=== PATIENT | female | born 1960 ===

== ENCOUNTER 2017-07-16 01:59 | Emergency (ER) | payer SELFPAY ==
[2017-07-16 02:26] VITALS: BMI 28.3
[2017-07-16 02:35] VITALS: RESP 18; TEMP 98.3
[2017-07-16] MEDS ORDERED: Morphine 4 mg/ml ISec IVP STA (02:50)
[2017-07-16] MEDS ORDERED: Sodium Chloride 0.9% 1,000 ML IV STA (02:50)
--- NOTE | 2017-07-16 03:02 | ED PDOC ---
Arrival/HPI - General Chief Complaint: Abdominal Pain Time Seen by Provider: 07/16/17 02:24 Historian: Patient - History of Present Illness Narrative History of Present Illness (Text): 07/16/17 02:59 A 56 year old female, whose past medical history includes panic attacks, hypertension, presents to the emergency department complaining of right upper quadrant abdominal pain. The patient notes that whenever she eats greasy foods she experiences the pain and gas. She notes that she has experienced this discomfort in the past. The patient denies fevers, chills, headache, dizziness, chest pain, shortness of breath, dyspnea on exertion, cough, nausea, vomiting, diarrhea, back pain, neck pain, urinary/bowel changes, or any other complaint. Time/Duration: Other (Few Days) Symptom Onset: Sudden Symptom Course: Unchanged Activities at Onset: Rest, Light Context: Home Past Medical History - Provider Review Nursing Documentation Reviewed: Yes - Infectious Disease Hx of Infectious Diseases: None - Tetanus Immunization Tetanus Immunization: Unknown - Cardiac Hx Hypertension: Yes - Pulmonary Hx Respiratory Disorders: No Hx Tuberculosis: No - Neurological HX Cerebrovascular Accident: No Hx Seizures: No - HEENT Hx HEENT Disorder: No - Renal Hx Renal Disorder: No - Endocrine/Metabolic Hx Hypothyroidism: Yes - Hematological/Oncological Hx Cancer: No - Integumentary Hx Dermatological Disorder: No - Musculoskeletal/Rheumatological Hx Musculoskeletal Disorders: No - Gastrointestinal Hx Gastrointestinal Disorders: No - Genitourinary/Gynecological Hx Sexually Transmitted Diseases: No - Psychiatric Hx Anxiety: Yes Hx Depression: Yes Hx Substance Use: No - Surgical History Hx Hysterectomy: Yes - Anesthesia Hx Anesthesia: Yes Hx Anesthesia Reactions: Yes (nausea) - Suicidal Assessment Feels Threatened In Home Enviroment: No Family/Social History - Physician Review Nursing Documentation Reviewed: Yes Family/Social History: No Known Family HX Smoking Status: Unknown If Ever Smoked Hx Alcohol Use: No Hx Substance Use: No Hx Substance Use Treatment: No Allergies/Home Meds Allergies/Adverse Reactions: Allergies No Known Allergies Allergy (Verified 07/16/17 02:33) Home Medications: Home Meds Medication Instructions Recorded Confirmed clonazePAM [clonAZEPAM] 2 mg PO HS 07/16/17 07/16/17 Review of Systems - Physician Review All systems were reviewed & negative as marked: Yes - Review of Systems Constitutional: absent: Fevers Cardiovascular: absent: Chest Pain Physical Exam - Physical Exam Narrative Physical Exam (Text): 07/16/17 03:04 Constitutional: No acute distress. Head: Normocephalic. Atraumatic. Eyes: PERRL. No scleral icterus. ENT: Moist mucous membranes. Neck: Supple. Cardiovascular: Regular rate. Chest: No tenderness. Respiratory: Clear to auscultation bilaterally. GI: Soft. Nondistended. RUQ tenderness with guarding. Back: No CVA tenderness. Musculoskeletal: No tenderness or swelling of extremities. Skin: No rash. No jaundice. Neurologic: Alert, no focal deficit. Vital Signs Reviewed: Yes Vital Signs Temp Pulse Resp BP Pulse Ox 07/16/17 02:33 98.3 F 87 18 139/83 99 Temperature: Afebrile Blood Pressure: Normal Pulse: Regular Respiratory Rate: Normal Appearance: Positive for: Well-Appearing, Non-Toxic, Comfortable Pain Distress: None Mental Status: Positive for: Alert and Oriented X 3 Medical Decision Making ED Course and Treatment: 07/16/17 03:01 Impression: A 56 year old female presents to the emergency department complaining of right upper quadrant abdominal pain. Plan: -- Abdominal Ultrasound -- Urinalysis -- Labs -- Morphine, Zofran, and IV Fluids -- Reassess and disposition Progress Notes: US Abdomen Complete Dictated and Authenticated by: Fouzia Carvajal MD 07/16/2017 5:22 AM Eastern Time ([place] & [place]) IMPRESSION: 1. No acute findings. 2. Hepatic steatosis. Patient states she feels better without abdominal tenderness at this time. Advised f/u with GI, instructed to return to ED in interim for worsening pain, vomiting, or fever. - Lab Interpretations Lab Results: 07/16/17 02:53 07/16/17 02:53 Lab Results 07/16/17 02:53: Sodium 141, Potassium 4.2, Chloride 105, Carbon Dioxide 25, Anion Gap 15, BUN 13, Creatinine 0.9, Est GFR ( Amer) > 60, Est GFR (Non- Af Amer) > 60, Random Glucose 109, Calcium 9.4, Total Bilirubin 0.5, AST 37 H, ALT 56, Alkaline Phosphatase 80, Total Protein 7.8, Albumin 4.3, Globulin 3.5, Albumin/Globulin Ratio 1.2, Lipase 135 07/16/17 02:53: Urine Color Yellow, Urine Appearance Clear, Urine pH 6.5, Ur Specific [place] <= 1.005, Urine Protein Negative, Urine Glucose (UA) Negative, Urine Ketones Negative, Urine Blood Negative, Urine Nitrate Negative, Urine Bilirubin Negative, Urine Urobilinogen 0.2, Ur Leukocyte Esterase Trace H, Urine RBC 0 - 2, Urine WBC 0 - 2, Ur Epithelial Cells 0 - 2, Urine HCG, Qual Negative 07/16/17 02:53: WBC 6.6, RBC 3.81, Hgb 11.8 L, Hct 34.6 L, MCV 90.8, MCH 31.0, MCHC 34.1, RDW 13.3, Plt Count 230, MPV 9.6, Gran % 42.8 L, Lymph % (Auto) 45.4 H, [place] % (Auto) 10.1 H, Eos % (Auto) 1.4 L, Baso % (Auto) 0.3, Gran # 2.83, Lymph # (Auto) 3.0, [place] # (Auto) 0.7 H, Eos # (Auto) 0.1, Baso # (Auto) 0.02 I have reviewed the lab results: Yes - RAD Interpretation Radiology Orders: 07/16/17 02:50 ABDOMEN COMPLETE [US] Stat - Medication Orders Current Medication Orders: Discontinued Medications Sodium Chloride (Sodium Chloride 0.9%) 1,000 mls @ 999 mls/hr IV .Q1H1M STA Stop: 07/16/17 03:50 Last Admin: 07/16/17 03:05 Dose: 999 mls/hr eMAR Start Stop Document 07/16/17 03:05 NAT (Rec: 07/16/17 03:05 NAT [id number]) Intravenous Solution Start Date 07/16/17 Start Time 03:05 Morphine Sulfate (Morphine) 4 mg IVP STAT STA Stop: 07/16/17 02:51 Last Admin: 07/16/17 03:05 Dose: 4 mg MAR Pain Assessment Document 07/16/17 03:05 NAT (Rec: 07/16/17 03:05 NAT [id number]) Pain Reassessment Is this a pain reassessment? Yes Sleep Is patient sleeping during reassessment? No Presence of Pain Presence of Pain Yes Pain Scale Used Pain Scale Used Numeric IVP Administration Document 07/16/17 03:05 NAT (Rec: 07/16/17 03:05 NAT [id number]) Charges for Administration # of IVP Administrations 1 Ondansetron HCl (Zofran Inj) 8 mg IVP STAT STA Stop: 07/16/17 02:51 Last Admin: 07/16/17 03:01 Dose: 8 mg IVP Administration Document 07/16/17 03:01 NAT (Rec: 07/16/17 03:03 NAT [id number]) Charges for Administration # of IVP Administrations 1 - Scribe Statement The provider has reviewed the documentation as recorded by the Julienibe Elenita Medrano Provider Scribe Attestation: All medical record entries made by the Scribe were at my direction and personally dictated by me. I have reviewed the chart and agree that the record accurately reflects my personal performance of the history, physical exam, medical decision making, and the department course for this patient. I have also personally directed, reviewed, and agree with the discharge instructions and disposition. Disposition/Present on Arrival - Present on Arrival Any Indicators Present on Arrival: No History of DVT/PE: No History of Uncontrolled Diabetes: No Urinary Catheter: No History of Decub. Ulcer: No History Surgical Site Infection Following: None - Disposition Have Diagnosis and Disposition been Completed?: Yes Diagnosis: Abdominal pain Disposition: HOME/ ROUTINE Disposition Time: 05:33 Patient Plan: Discharge Condition: STABLE Discharge Instructions (ExitCare): Acute Abdomen (Belly Pain) Prescriptions: Famotidine/Ca Carb/Mag Hydrox [Pepcid Complete Tablet Chew] 1 each PO BID #28 tab.chew Forms: [employer] (Stateless)
[2017-07-16 03:08] LABS: BASO # 0.02 K/mm3 (0.0-2.0); BASO % 0.3 % (0.0-3.0); EOS # 0.1 (0.0-0.7); EOS % 1.4 % (1.5-5.0); GRAN # 2.83 (1.4-6.5); GRAN % 42.8 % (50.0-68.0); HEMOGLOBIN 11.8 g/dL (12.0-16.0); LYMPH % 45.4 % (22.0-35.0); MEAN CELL VOLUME 90.8 fl (80.0-105.0); MEAN CORPUSCULAR HGB CONC 34.1 g/dl (31.0-37.0); MEAN PLATELET VOLUME 9.6 fl (7.0-11.0); MONO # 0.7 (0.1-0.6); MONO % 10.1 % (1.0-6.0); RBC 3.81 10^6/uL (3.5-6.1); RED CELL DISTRIBUTION WIDTH 13.3 % (11.5-14.5); WHITE BLOOD COUNT 6.6 10^3/ul (4.5-11.0)
[2017-07-16 03:09] LABS: PH,URINE 6.5 (4.7-8.0); URINE BILIRUBIN NEGATIVE (NEGATIVE); URINE BLOOD NEGATIVE (NEGATIVE); URINE GLUCOSE (UA) NEGATIVE (NEGATIVE); URINE LEUKOCYTE ESTERASE TRACE Leu/uL (NEGATIVE); URINE PROTEIN NEGATIVE mg/dL (<30 mg/dL); URINE UROBILINOGEN 0.2 E.U./dL (<1 E.U./dL)
[2017-07-16 03:14] LABS: HCG,QUALITATIVE URINE NEGATIVE (NEGATIVE); URINE APPEARANCE CLEAR (CLEAR); URINE COLOR YELLOW (YELLOW)
[2017-07-16 03:17] LABS: ALB/GLOB RATIO 1.2 (1.1-1.8); ALBUMIN 4.3 g/dL (3.0-4.8); ALT/SGPT 56 U/L (7-56); AST/SGOT 37 U/L (14-36); BLOOD UREA NITROGEN 13 mg/dL (7-21); CALCIUM 9.4 mg/dL (8.4-10.5); GFR AFRICAN-AMERICAN > 60; GFR NON-AFRICAN AMERICAN > 60; LIPASE 135 U/L (23-300)
[2017-07-16 03:19] LABS: URINE EPITHELIAL CELLS 0 - 2 /hpf (0-5); URINE RBC 0 - 2 /hpf (0-2); URINE WBC 0 - 2 /hpf (0-6)
[2017-07-16 05:59] VITALS: BP 111/67; PULSE 76; O2SAT 96
--- NOTE | 2017-07-16 06:54 | US ---
HISTORY: RUQ pain COMPARISON: 12/08/2012 TECHNIQUE: Sonographic evaluation of the abdomen. FINDINGS: LIVER: Measures 18.6 cm. Hepatopedal blood flow. Fatty infiltration manifest ultrasonographically as increased echogenicity of the liver parenchyma. No mass. No intrahepatic bile duct dilatation. GALLBLADDER: Unremarkable. No gallstones. COMMON BILE DUCT: Measures 5.6 mm. No stones. No dilatation. PANCREAS: Unremarkable as visualized. No mass. No ductal dilatation. RIGHT KIDNEY: Measures 4.2 x 10.5cm. Normal echogenicity. No calculus, mass, or hydronephrosis. LEFT KIDNEY: Measures 4.8 x 10 pointcm. Normal echogenicity. No calculus, mass, or hydronephrosis. SPLEEN: Normal in size and contour. No mass. AORTA: No aneurysmal dilatation. IVC: Unremarkable. OTHER FINDINGS: None. IMPRESSION: Hepatomegaly, hepatic steatosis. Otherwise unremarkable study. No significant interval change compared to the prior examination(s).
== END 2017-07-16 05:50 | disposition home or self-care (01) ==
LOC: ED 01:59
DX: R10.9 Unspecified abdominal pain (principal); I10 Essential (primary) hypertension
CPT/HCPCS: 76700; 80053; 81001; 83690; 84703; 85025; 87086; 96374; 96375; 99284; J2270; J2405; J7040

== ENCOUNTER 2018-01-09 23:01 | Emergency (ER) | payer MEDICAID ==
[2018-01-09 23:01] VITALS: BMI 28.3
[2018-01-10 00:33] VITALS: RESP 17
--- NOTE | 2018-01-10 00:51 | ED PDOC ---
Arrival/HPI - General Chief Complaint: Back Pain Time Seen by Provider: 01/10/18 00:47 Historian: Patient - History of Present Illness Narrative History of Present Illness (Text): 01/10/18 02:23 57 y/o female with PMH of gastritis, sciatica, herniated discs, and chronic back pain (s/p accidents in 2012 and 2015) presents to the ED c/o worsening right- sided lower back pain x 8 days. Pt describes pain as 10/10, sharp, worse with movement. She has had pain like this before, but never this severe. Pain occasionally radiates down her right leg with associated paresthesias. Took 1 Alieve yesterday for pain without relief. Pt has established orthopedic followup and has had two MRI's of her spine in the past. No recent imaging. Also c/o mild epigastric abdominal pain and constipation that is chronic, which she attributes to her gastritis. No recent trauma, heavy lifting, or IVDA. Denies fevers, chills, bowel/bladder incontinence, saddle anesthesia, urinary symptoms, weakness, N/V, neck pain. Past Medical History - Provider Review Nursing Documentation Reviewed: Yes - Infectious Disease Hx of Infectious Diseases: None - Tetanus Immunization Tetanus Immunization: Unknown - Cardiac Hx Hypertension: Yes - Pulmonary Hx Respiratory Disorders: No Hx Tuberculosis: No - Neurological HX Cerebrovascular Accident: No Hx Seizures: No - HEENT Hx HEENT Disorder: No - Renal Hx Renal Disorder: No - Endocrine/Metabolic Hx Hypothyroidism: Yes - Hematological/Oncological Hx Cancer: No - Integumentary Hx Dermatological Disorder: No - Musculoskeletal/Rheumatological Hx Musculoskeletal Disorders: No - Gastrointestinal Hx Gastrointestinal Disorders: No - Genitourinary/Gynecological Hx Sexually Transmitted Diseases: No - Psychiatric Hx Anxiety: Yes Hx Depression: Yes Hx Substance Use: No - Surgical History Hx Hysterectomy: Yes - Anesthesia Hx Anesthesia: Yes Hx Anesthesia Reactions: Yes (nausea) Hx Malignant Hyperthermia: No - Suicidal Assessment Feels Threatened In Home Enviroment: No Family/Social History - Physician Review Nursing Documentation Reviewed: Yes Family/Social History: No Known Family HX Smoking Status: Never Smoked Hx Alcohol Use: No Hx Substance Use: No Hx Substance Use Treatment: No Allergies/Home Meds Allergies/Adverse Reactions: Allergies No Known Allergies Allergy (Verified 01/10/18 00:08) Review of Systems - Physician Review All systems were reviewed & negative as marked: Yes - Review of Systems Constitutional: Normal. absent: Fatigue, Fevers Eyes: Normal. absent: Vision Changes, Photophobia, Eye Pain ENT: Normal Respiratory: Normal. absent: SOB, Cough Cardiovascular: Normal. absent: Chest Pain, Palpitations Gastrointestinal: Normal, Abdominal Pain (mild, epigastric). absent: Stool Changes, Constipation, Diarrhea, Nausea, Vomiting, Appetite Changes Genitourinary Female: Normal. absent: Dysuria, Frequency, Hematuria, Urine Output Changes, Vaginal Bleeding, Vaginal Discharge Musculoskeletal: Normal, Back Pain (right side). absent: Neck Pain, Joint Swelling, Myalgias Skin: Normal. absent: Rash, Skin Lesions, Abscess Neurological: Normal, Gait Changes (limping secondary to pain). absent: Headache, Dizziness, Focal Weakness, Speech Changes, Facial Droop, Disequilibrium, Seizure Endocrine: Normal Hemo/Lymphatic: Normal Psychiatric: Normal Physical Exam Vital Signs Reviewed: Yes Vital Signs Temp Pulse Resp BP Pulse Ox 01/10/18 00:32 98.0 F 81 17 168/93 H 96 Temperature: Afebrile Blood Pressure: Hypertensive Pulse: Regular Respiratory Rate: Normal Appearance: Positive for: Well-Appearing, Non-Toxic, Comfortable Pain Distress: None Mental Status: Positive for: Alert and Oriented X 3 - Systems Exam Head: Present: Atraumatic, Normocephalic Pupils: Present: PERRL Extroacular Muscles: Present: EOMI Conjunctiva: Present: Normal Mouth: Present: Moist Mucous Membranes Neck: Present: Normal Range of Motion Respiratory/Chest: Present: Clear to Auscultation, Good Air Exchange. No: Respiratory Distress, Accessory Muscle Use Cardiovascular: Present: Regular Rate and Rhythm, Normal S1, S2. No: Murmurs Abdomen: Present: Tenderness (mild epigastric tenderness), Normal Bowel Sounds. No: Distention, Peritoneal Signs, Rebound, Guarding Back: Present: Normal Inspection, Midline Tenderness (lumbar spine), Paraspinal Tenderness (right and left lumbar paraspinal), Pain with Leg Raise (right side ). No: CVA Tenderness, Decubitus Ulcer Upper Extremity: Present: Normal Inspection, Normal ROM, NORMAL PULSES. No: Cyanosis, Edema, Tenderness, Swelling Lower Extremity: Present: Normal Inspection, NORMAL PULSES, Normal ROM. No: Edema, Tenderness, Swelling Neurological: Present: GCS=15, CN II-XII Intact, Speech Normal, Motor Func Grossly Intact, Normal Sensory Function, Normal Cerebellar Funct. No: Gait Normal (limping secondary to pain) Skin: Present: Warm, Dry, Normal Color. No: Rashes Psychiatric: Present: Alert, Oriented x 3, Normal Insight, Normal Concentration Medical Decision Making ED Course and Treatment: 01/10/18 00:57 Initial Plan: * valium * toradol * ua, culture * CBC, CMP, ESR * AXR * CT Lumbar spine 01/10/18 01:30 Pt reports decreased pain after medication. 01/10/18 02:00 Will endorse pt to Dr. Balderas pending results of diagnostic testing. Pt aware of change of care. Disposition/Present on Arrival - Present on Arrival Any Indicators Present on Arrival: No History of DVT/PE: No History of Uncontrolled Diabetes: No Urinary Catheter: No History of Decub. Ulcer: No History Surgical Site Infection Following: None - Disposition Have Diagnosis and Disposition been Completed?: No Diagnosis: Back pain Disposition Time: 02:00 Patient Problems: Current Active Problems Problem Status Onset Back pain Acute Condition: STABLE Forms: [employer] (Greek)
[2018-01-10] MEDS ORDERED: Lidocaine 5% Patch TD ONE (02:03)
[2018-01-10 02:49] LABS: ALB/GLOB RATIO 1.1 (1.1-1.8); ALBUMIN 4.5 g/dL (3.0-4.8); ALT/SGPT 36 U/L (7-56); AST/SGOT 27 U/L (14-36); BASO # 0.01 K/mm3 (0.0-2.0); BASO % 0.1 % (0.0-3.0); BLOOD UREA NITROGEN 12 mg/dL (7-21); CALCIUM 9.2 mg/dL (8.4-10.5); EOS # 0.1 (0.0-0.7); EOS % 1.6 % (1.5-5.0); GFR NON-AFRICAN AMERICAN > 60; GRAN # 4.31 (1.4-6.5); GRAN % 50.1 % (50.0-68.0); LYMPH # 3.6 (1.2-3.4); LYMPH % 41.7 % (22.0-35.0); MEAN CORPUSCULAR HEMOGLOBIN 30.9 pg (25.0-35.0); MEAN CORPUSCULAR HGB CONC 33.8 g/dl (31.0-37.0); MEAN PLATELET VOLUME 9.6 fl (7.0-11.0); MONO # 0.6 (0.1-0.6); MONO % 6.5 % (1.0-6.0); RBC 3.88 10^6/uL (3.5-6.1); RED CELL DISTRIBUTION WIDTH 13.4 % (11.5-14.5); URINE BILIRUBIN NEGATIVE (NEGATIVE); URINE BLOOD TRACE-INTACT (NEGATIVE); URINE GLUCOSE (UA) NEGATIVE (NEGATIVE); URINE LEUKOCYTE ESTERASE SMALL Leu/uL (NEGATIVE); URINE PROTEIN NEGATIVE mg/dL (<30 mg/dL); URINE UROBILINOGEN 0.2 E.U./dL (<1 E.U./dL); WHITE BLOOD COUNT 8.6 10^3/uL (4.5-11.0)
[2018-01-10 02:53] LABS: URINE APPEARANCE SL CLOUDY (CLEAR); URINE COLOR YELLOW (YELLOW)
[2018-01-10 02:54] LABS: MEAN CELL VOLUME 91.5 fl (80.0-105.0)
[2018-01-10 03:08] LABS: URINE BACTERIA FEW (NEG); URINE RBC 0 - 2 /hpf (0-2)
--- NOTE | 2018-01-10 03:26 | ED PDOC ---
Physical Exam Vital Signs Reviewed: Yes Vital Signs Temp Pulse Resp BP Pulse Ox 01/10/18 03:04 86 17 143/88 97 01/10/18 00:32 98.0 F 81 17 168/93 H 96 Temperature: Afebrile Blood Pressure: Hypertensive Pulse: Regular Respiratory Rate: Normal Appearance: Positive for: Well-Appearing, Non-Toxic, Comfortable Pain Distress: None Mental Status: Positive for: Alert and Oriented X 3 Medical Decision Making ED Course and Treatment: 01/10/18 02:25 57 y/o F presenting to the emergency department with back pain. Pending CT results. 01/10/18 04:55 CT results show multi-level disk disease. Labs reviewed and unremarkable. Patient updated on findings and states she has been aware. She will follow up. Scripts provided. She - Lab Interpretations Lab Results: 01/10/18 02:16 01/10/18 02:16 Lab Results 01/10/18 02:16: Sodium 140, Potassium 4.0, Chloride 105, Carbon Dioxide 24, Anion Gap 15, BUN 12, Creatinine 0.8, Est GFR ( Amer) > 60, Est GFR (Non- Af Amer) > 60, Random Glucose 99, Calcium 9.2, Total Bilirubin 0.4, AST 27, ALT 36, Alkaline Phosphatase 110, Total Protein 8.4 H, Albumin 4.5, Globulin 4.0, Albumin/Globulin Ratio 1.1 01/10/18 02:16: WBC 8.6 D, RBC 3.88, Hgb 12.0, Hct 35.5 L, MCV 91.5 D, MCH 30.9, MCHC 33.8, RDW 13.4, Plt Count 234, MPV 9.6, Gran % 50.1, Lymph % (Auto) 41.7 H, Bent % (Auto) 6.5 H, Eos % (Auto) 1.6, Baso % (Auto) 0.1, Gran # 4.31, Lymph # (Auto) 3.6 H, Bent # (Auto) 0.6, Eos # (Auto) 0.1, Baso # (Auto) 0.01, ESR Pending 01/10/18 02:16: Urine Color Yellow, Urine Appearance Sl cloudy, Urine pH 6.0, Ur Specific [place] 1.025, Urine Protein Negative, Urine Glucose (UA) Negative, Urine Ketones Negative, Urine Blood Trace-intact H, Urine Nitrate Negative, Urine Bilirubin Negative, Urine Urobilinogen 0.2, Ur Leukocyte Esterase Small H, Urine RBC 0 - 2, Urine WBC 2 - 5, Ur Epithelial Cells 1 - 3, Urine Bacteria Few - RAD Interpretation Narrative RAD Interpretations (Text): 01/10/18 03:43 CT scan of the lumbar spine without contrast. Indication: Trauma. Pain. Technique: Axial CT scan images without contrast. Reformatted coronal and sagittal images. Findings: There are diffuse spondylotic changes. Findings are demonstrated by disc space narrowing, osteophyte formation and degenerative endplate changes. Facet joint arthropathy is noted. No fracture or dislocation is seen. No aggressive bone lesion is noted. Mild multilevel degenerative disc disease more prominent from L2-S1 levels. Impression: Spondylosis. Multilevel facet joint arthropathy. No acute bone pathology. 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 No Sleep Is patient sleeping during reassessment? No Presence of Pain Presence of Pain No IM Administration Charges Document 01/10/18 01:21 IT (Rec: 01/10/18 01:22 IT [id number]) Injection Site MAR Injection Site Right Deltoid Charges for Administration # of IM Administrations 1 Lidocaine (Lidoderm) 1 ea TD ONCE ONE Stop: 01/10/18 02:04 Last Admin: 01/10/18 03:03 Dose: 1 ea MAR Transdermal Patch Site Document 01/10/18 03:03 IT (Rec: 01/10/18 03:04 IT [id number]) Transdermal Patch Site Transdermal Patch Site Left Lower Back Disposition/Present on Arrival - Present on Arrival Any Indicators Present on Arrival: No History of DVT/PE: No History of Uncontrolled Diabetes: No Urinary Catheter: No History of Decub. Ulcer: No History Surgical Site Infection Following: None - Disposition Have Diagnosis and Disposition been Completed?: Yes Diagnosis: Back pain Disposition: HOME/ ROUTINE Disposition Time: 04:58 Patient Plan: Discharge Patient Problems: Current Active Problems Problem Status Onset Back pain Acute Condition: STABLE Discharge Instructions (ExitCare): Low Back Pain (DC), Herniated Disc (DC), Upper Back Pain (DC), Radiculopathy (DC) Print Language: BHUTANESE Additional Instructions: All medical record entries made by the Scribe were at my direction and personally dictated by me. I have reviewed the chart and agree that the record accurately reflects my personal performance of the history, physical exam, medical decision making, and the department course for this patient. I have also personally directed, reviewed, and agree with the discharge instructions and disposition. Prescriptions: Cyclobenzaprine [Cyclobenzaprine HCl] 10 mg PO PRN PRN #6 tab PRN Reason: Muscle Spasm Ibuprofen [Motrin Tab] 600 mg PO Q6H PRN 6 Days #24 tab PRN Reason: Pain, Moderate (4-7) Lidocaine 5% [Lidoderm] 1 ea TD Q12H #5 patch Referrals: Evens Zavala MD [Staff Provider] - Follow up with primary Netta Amanda MD [Medical Doctor] - [place] up with primary [facility] [place] - Follow up with primary Forms: [employer] (Malaysian)
[2018-01-10 05:20] VITALS: BP 138/82; PULSE 82; TEMP 98.2; O2SAT 98
--- NOTE | 2018-01-10 10:14 | CT ---
Date of service: 01/10/2018 PROCEDURE: CT Lumbar Spine without contrast HISTORY: midline tender COMPARISON: None available. TECHNIQUE: Axial computed tomography images were obtained of the lumbar spine without the use of intravenous contrast. Coronal and sagittal reformatted images were created and reviewed. Radiation dose: Total exam DLP = 487.04 mGy-cm. This CT exam was performed using one or more of the following dose reduction techniques: Automated exposure control, adjustment of the mA and/or kV according to patient size, and/or use of iterative reconstruction technique. FINDINGS: VERTEBRAE: Unremarkable. No fracture. Normal alignment. DISCS/SPINAL CANAL/NEURAL FORAMINA: L1-2: Unremarkable. L2-3: Unremarkable. L3-4: Unremarkable. L4-5: Unremarkable. L5-S1: Disc ridge complex with foraminal stenosis on the left. PARASPINAL SOFT TISSUES: Unremarkable. OTHER FINDINGS: None. IMPRESSION: No fracture.
--- NOTE | 2018-01-10 11:28 | RAD ---
Date of service: 01/10/2018 HISTORY: distension COMPARISON: None available. FINDINGS: BOWEL: Normal. No obstruction. No free air. There is moderate constipation BONES: Normal. OTHER FINDINGS: None. IMPRESSION: Moderate constipation
== END 2018-01-10 05:20 | disposition home or self-care (01) ==
LOC: ED 23:01
DX: M54.5 Low back pain (principal); I10 Essential (primary) hypertension; E03.9 Hypothyroidism, unspecified
CPT/HCPCS: 72131; 74019; 80053; 81001; 85025; 85651; 87086; 96372; 99283; J1885

== ENCOUNTER 2018-05-12 13:18 | Inpatient (IN) | payer MEDICAID ==
[2018-05-12 13:42] VITALS: BMI 27.2
[2018-05-12 14:21] LABS: URINE BILIRUBIN NEGATIVE (NEGATIVE); URINE BLOOD NEGATIVE (NEGATIVE); URINE GLUCOSE (UA) NEGATIVE (NEGATIVE); URINE LEUKOCYTE ESTERASE NEGATIVE Leu/uL (NEGATIVE); URINE PROTEIN NEGATIVE mg/dL (<30 mg/dL); URINE UROBILINOGEN 0.2 E.U./dL (<1 E.U./dL)
[2018-05-12 14:22] LABS: URINE APPEARANCE CLEAR (CLEAR); URINE COLOR YELLOW (YELLOW)
[2018-05-12 14:29] LABS: BASO # 0.01 K/mm3 (0.0-2.0); BASO % 0.1 % (0.0-3.0); EOS # 0.1 (0.0-0.7); EOS % 1.5 % (1.5-5.0); HEMOGLOBIN 12.7 g/dL (12.0-16.0); LYMPH # 3.3 (1.2-3.4); LYMPH % 45.6 % (22.0-35.0); MEAN CELL VOLUME 91.1 fl (80.0-105.0); MEAN CORPUSCULAR HEMOGLOBIN 30.6 pg (25.0-35.0); MEAN CORPUSCULAR HGB CONC 33.6 g/dl (31.0-37.0); MEAN PLATELET VOLUME 9.7 fl (7.0-11.0); MONO # 0.5 (0.1-0.6); MONO % 7.5 % (1.0-6.0); RBC 4.15 10^6/uL (3.5-6.1); RED CELL DISTRIBUTION WIDTH 13.5 % (11.5-14.5); WHITE BLOOD COUNT 7.2 10^3/uL (4.5-11.0)
--- NOTE | 2018-05-12 14:32 | RAD ---
Date of service: 05/12/2018 HISTORY: pes eval COMPARISON: 11/28/2017 FINDINGS: LUNGS: No active pulmonary disease. PLEURA: No significant pleural effusion identified, no pneumothorax apparent. CARDIOVASCULAR: No aortic atherosclerotic calcification present. Normal cardiac size. No pulmonary vascular congestion. OSSEOUS STRUCTURES: No significant abnormalities. VISUALIZED UPPER ABDOMEN: Normal. OTHER FINDINGS: None. IMPRESSION: No active disease.
[2018-05-12 14:41] LABS: ACETAMINOPHEN < 10.0 ug/ml (10.0-20.0); SALICYLATE < 1 mg/dL (2.0-20.0)
[2018-05-12 14:41] LABS: BENZODIAZEPINES, UR NEGATIVE (NEGATIVE)
[2018-05-12 14:42] LABS: ALB/GLOB RATIO 1.2 (1.1-1.8); BLOOD UREA NITROGEN 12 mg/dL (7-21); CALCIUM 9.9 mg/dL (8.4-10.5); GFR NON-AFRICAN AMERICAN > 60
[2018-05-12 14:46] LABS: BARBITURATES, UR NEGATIVE (NEGATIVE); OPIATES, UR NEGATIVE (NEGATIVE); PHENCYCLIDINE, UR NEGATIVE (NEGATIVE)
[2018-05-12 14:46] LABS: ALT/SGPT 20 U/L (7-56); AST/SGOT 32 U/L (14-36)
--- NOTE | 2018-05-12 16:07 | CARD ---
APPROVED REPORT Date of service: 05/12/2018 EKG Measurement Heart [id number] <Conclusion> Normal sinus rhythm Normal ECG
--- NOTE | 2018-05-12 16:50 | ED PDOC ---
Arrival/HPI - General Chief Complaint: Psychiatric Evaluation Time Seen by Provider: 05/12/18 13:22 Historian: Patient - History of Present Illness Narrative History of Present Illness (Text): 05/12/18 16:54 57yr old female with a hx of anxiety and depression presents today sent in by her psychiatrist for psychiatric admission. Patient states while in the office she had a panic attack and she's been feeling very anxious and depressed lately. She denies suicidal or homicidal ideations. She denies chest pain or shortness of breath. Patient denies dizziness or weakness. No other complaints. Patient states she did not take her blood pressure medicine today. Past Medical History - Provider Review Nursing Documentation Reviewed: Yes - Travel History Have you recently traveled outside [place] w/in the past 3 mons?: No - Infectious Disease Hx of Infectious Diseases: None - Tetanus Immunization Tetanus Immunization: Unknown - Cardiac Hx Cardiac Disorders: No Hx Hypertension: Yes - Pulmonary Hx Tuberculosis: No - Neurological HX Cerebrovascular Accident: No Hx Seizures: No - HEENT Hx HEENT Disorder: Yes (SEASONAL ALLERGIES) - Renal Hx Renal Disorder: No - Endocrine/Metabolic Hx Endocrine Disorders: Yes Hx Hypothyroidism: Yes - Hematological/Oncological Hx Cancer: No - Integumentary Hx Dermatological Disorder: No - Musculoskeletal/Rheumatological Hx Musculoskeletal Disorders: Yes Hx Back Pain: Yes (PINCHED NERVE) Hx Herniated Disk: Yes (4) - Gastrointestinal Hx Gastrointestinal Disorders: Yes Hx Gastritis: Yes - Genitourinary/Gynecological Hx Sexually Transmitted Diseases: No - Psychiatric Hx Psychophysiologic Disorder: Yes Hx Anxiety: Yes Hx Depression: Yes Hx Emotional Abuse: No Hx Panic Disorder: Yes Hx Physical Abuse: No Hx Substance Use: No - Surgical History Hx Section: Yes (X1) Hx Hysterectomy: Yes - Anesthesia Hx Anesthesia: Yes Hx Anesthesia Reactions: Yes (nausea) Hx Malignant Hyperthermia: No - Suicidal Assessment Feels Threatened In Home Enviroment: No Family/Social History - Physician Review Nursing Documentation Reviewed: Yes Family/Social History: Unknown Family HX Smoking Status: Never Smoked Hx Alcohol Use: No Hx Substance Use: No Hx Substance Use Treatment: No Allergies/Home Meds Allergies/Adverse Reactions: Allergies No Known Allergies Allergy (Verified 05/12/18 13:47) Home Medications: Home Meds Medication Instructions Recorded Confirmed Atorvastatin [Lipitor] 20 mg PO DIN 04/20/18 04/20/18 Ergocalciferol (Vitamin D2) 1 tab PO QWK 04/20/18 04/20/18 [Vitamin D2] Fluticasone Propionate [Flovent 1 spray INH DAILY 04/20/18 04/20/18 Diskus] Levocetirizine Dihydrochloride 1 tab PO DAILY 04/20/18 04/20/18 Losartan [Cozaar] 100 mg PO DAILY 04/20/18 04/20/18 Mirtazapine 1 tab PO HS 04/20/18 04/20/18 Peppermint Oil [Ibgard] 1 tab PO DAILY 04/20/18 04/20/18 Promethazine DM [Phenergan DM 5 ml PO PRN PRN 04/20/18 04/20/18 Syrup] Venlafaxine [Effexor XR] 300 mg PO DAILY 04/20/18 04/20/18 Review of Systems - Review of Systems Constitutional: absent: Fatigue, Fevers Respiratory: absent: SOB, Cough Cardiovascular: absent: Chest Pain, Palpitations Gastrointestinal: absent: Abdominal Pain, Constipation, Diarrhea, Nausea, Vomiting Musculoskeletal: absent: Arthralgias, Back Pain, Neck Pain Skin: absent: Rash, Pruritis Neurological: absent: Headache, Dizziness Psychiatric: absent: Anxiety, Depression, Suicidal Ideation Physical Exam Vital Signs Reviewed: Yes Vital Signs Temp Pulse Resp BP Pulse Ox 05/12/18 14:16 80 18 154/72 H 99 05/12/18 13:41 97.9 F 95 H 19 189/105 H 100 Temperature: Afebrile Blood Pressure: Hypertensive Pulse: Regular Respiratory Rate: Normal Appearance: Positive for: Well-Appearing, Non-Toxic, Comfortable Pain Distress: None Mental Status: Positive for: Alert and Oriented X 3 - Systems Exam Head: Present: Atraumatic Mouth: Present: Moist Mucous Membranes Neck: Present: Normal Range of Motion Respiratory/Chest: Present: Clear to Auscultation, Good Air Exchange. No: Respiratory Distress, Accessory Muscle Use Cardiovascular: Present: Regular Rate and Rhythm, Normal S1, S2. No: Murmurs Abdomen: No: Tenderness, Distention, Rebound, Guarding Upper Extremity: Present: Normal ROM Lower Extremity: Present: Normal ROM Neurological: Present: GCS=15, Speech Normal Skin: Present: Warm, Dry, Normal Color. No: Rashes Psychiatric: Present: Alert, Oriented x 3 Medical Decision Making ED Course and Treatment: 05/12/18 16:59 Patient is nontoxic well-appearing in no distress vital signs are stable. CBC WNL CMP WNL Tylenol WNL Salicylate WNL Alcohol level WNL Urine drug screen wnl UA; wnl cxr: wnl ekg normal sinus rhythm at 90 bpm normal axis normal intervals no ST elevations pt is medically cleared for PES evaluation Patient was seen and evaluated by PES screener: Charlene Patient signed voluntarily for psychiatric admission. Impression; depression, panic disorder Admitted to behavioral health floor Reassessment Condition: Re-examined - Lab Interpretations Lab Results: Total Bilirubin 0.7 mg/dL (0.2-1.3) 05/12/18 14:20 AST 32 U/L (14-36) 05/12/18 14:20 ALT 20 U/L (7-56) 05/12/18 14:20 Alkaline Phosphatase 107 U/L (38-126) 05/12/18 14:20 Total Protein 9.3 g/dL (5.8-8.3) H 05/12/18 14:20 Albumin 5.0 g/dL (3.0-4.8) H 05/12/18 14:20 Globulin 4.3 gm/dL 05/12/18 14:20 Albumin/Globulin Ratio 1.2 (1.1-1.8) 05/12/18 14:20 Urine Color Yellow (YELLOW) 05/12/18 14:10 Urine Appearance Clear (CLEAR) 05/12/18 14:10 Urine pH 6.0 (4.7-8.0) 05/12/18 14:10 Ur Specific [place] 1.025 (1.005-1.035) 05/12/18 14:10 Urine Protein Negative mg/dL (<30 mg/dL) 05/12/18 14:10 Urine Glucose (UA) Negative mg/dL (NEGATIVE) 05/12/18 14:10 Urine Ketones Negative mg/dL (NEGATIVE) 05/12/18 14:10 Urine Blood Negative (NEGATIVE) 05/12/18 14:10 Urine Nitrate Negative (NEGATIVE) 05/12/18 14:10 Urine Bilirubin Negative (NEGATIVE) 05/12/18 14:10 Urine Urobilinogen 0.2 E.U./dL (<1 E.U./dL) 05/12/18 14:10 Ur Leukocyte Esterase Negative William/uL (NEGATIVE) 05/12/18 14:10 - RAD Interpretation Radiology Orders: 05/12/18 14:03 CHEST PORTABLE [RAD] Stat Disposition/Present on Arrival - Present on Arrival Any Indicators Present on Arrival: No History of DVT/PE: No History of Uncontrolled Diabetes: No Urinary Catheter: No History of Decub. Ulcer: No History Surgical Site Infection Following: None - Disposition Have Diagnosis and Disposition been Completed?: Yes Diagnosis: Panic disorder, Depression Disposition: HOSPITALIZED Disposition Time: 16:00 Patient Plan: Admission Condition: FAIR Referrals: Karen Lyles MD [Primary Care Provider] - Follow up with primary
[2018-05-12 20:08] VITALS: O2SAT 100
[2018-05-12] MEDS ORDERED: Alum-Mag Hydrox-Simethicone Susp (30 mL) PO PRN (21:31)
--- NOTE | 2018-05-12 23:01 | PCM.BM ---
<Kassie Nielsen - Last Filed: 05/12/18 22:58> Treatment Plan Problems - Problems identified on initial assessmt Panic attack Date Initiated: 05/12/18 Time Initiated: 23:01 Assessment reference: NA Status: Active anxiety Date Initiated: 05/12/18 Time Initiated: 23:01 Assessment reference: NA Status: Active fear Date Initiated: 05/12/18 Time Initiated: 23:02 Assessment reference: NA Status: Active Treatment assets and liabiliti Patient Assests: adapts well, cooperative, insightful, good support system, negotiates basic needs, good interpersonal skills Patient Liabilities: live alone, financial problems, medical problems - Milieu Protocol Maintain good personal hygiene: daily Encourage regular showers, daily Remind patient to perform daily oral care, daily Assist patient to perform ADL's Conduct patient checks and document Observation sheet: Q15 minutes Maintain personal safety: every shift Educate patient to report safety concerns to staff, every shift Monitor environment for contraband/sharps Medication safety: Monitor for expected outcome, potential side effects: every shift, Assess barriers to learning: every shift, Assess readiness for medication education: every shift Discharge/Continuing Care - Education Needs Education Needs: Patient Medication, Patient Diagnosis/Disease Process, Patient Coping Skills, Patient Community resources, Patient Pain, Patient Health Practices/Safety, Patient Personal Hygiene/Grooming, Patient Aftercare Safety Plan - Discharge Discharge Criteria: Tolerates medication w/o severe side effects, Free of Suicidal thoughts, Free of paranoid thoughts, Normal sleep pattern, Ability to care for self, Reduction of target symptoms <Kristin Jasso - Last Filed: 05/13/18 11:55> Family Contact Family involvement: Famliy/SO not involved - Outside Agency Dr. Mesa Care involvment: Following patient during stay, Information-sharing Agency contact name: Dr. Mesa
[2018-05-13] MEDS: Levothyroxine 50 MCG TAB PO SCH (06:01)
[2018-05-13] MEDS: Pantoprazole 40 mg EC Tab PO SCH (06:01)
[2018-05-13 08:02] LABS: GLUCOSE,FASTING 106 mg/dL (65-110); HDL CHOLESTEROL 50 mg/dL (29-60)
[2018-05-13 08:13] LABS: LDL CHOLESTEROL 96 mg/dL (0-129)
[2018-05-13] MEDS: Venlafaxine 75 mg ER Cap PO SCH ×2 (08:51→15:29)
--- NOTE | 2018-05-13 12:41 | PCM.PSYCH ---
Initial Psychiatric Evaluation - Initial Psychiatric Evaluation Type of Admission: Voluntary Legal Status: Capacity (Patient has capacity to sign the form for treatment) Chief Complaint (in patient's own words): "December 2017 I came to the ED for abdominal pain, but they found something in my back, some pinched nerve, I was not able to walk for eight days, I had three MRIs, I have a conformation that my nerve was pinched, I have nerve which is sticking out on the right side of my belly, see that? I came to yesterday, I don't know what happened, I started to have a panic attack, I was feeling shaky, my face was shaky, tight, I was not able to breath, I told my doctor that I cannot breath...I was very anxious, I never felt this way, he recommended me to come to the hospital, I also supposed to go to [place], but I canceled the flight yesterday...". Patient's Reaction to Hospitalization: Patient was admitted to the inpatient unit for evaluation and stabilization of mood symptoms, possible somatic delusions, uncontrolled anxiety, inability to function. History of Present Illness and Precipitating Events: shortly pt is 57yr old female with a hx of anxiety and depression, previous psy chiatric admissions, most recent was in this facility in November 2017, patient denied history of suicidal attempts, patient has private psychiatrist whom she sees regularly, patient claimed being compliant with her medications and follow- up appointments, was referred by her outpatient psychiatrist Dr. Gonzalez for evaluation and stabilization and possible medication adjustment for her depressive symptoms as well as uncontrolled anxiety which affects her daily activities and functionality. Patient is well-known to this health underwriter from previous psychiatric admissions, patient Was seen today at the treatment team meeting together with social group worker, medical student, nurse. Patient presented with good personal hygiene, good ADLs. Patient was fixated on her medical issues, reported that in December 2017 she came to the hospital for abdominal pain, patient reported nothing was found, patient reported that that she had 3 MRIs of her back and "pinched nerves was found". Then patient tangent "December 2017 I came to the ED for abdominal pain, but they found something in my back, some pinched nerve, I was not able to walk for eight days, I had three MRIs, I have a conformation that my nerve was pinched, I have nerve which is sticking out on the right side of my belly, see that? I came to yesterday, I don't know what happened, I started to have a panic attack, I was feeling shaky, my face was shaky, tight, I was not able to breath, I told my doctor that I cannot breath...I was very anxious, I never felt this way, he recommended me to come to the hospital, I also supposed to go to [place], but I canceled the flight yesterday...". Obviously there is no "nerve" was observed on the right side of her abdomen. Patient reported that she was doing relatively fine up until she saw Dr. Gonzalez yesterday, patient reported that all of a sudden she started to feel panicky, had numbness of her face, patient was not able to calm down, patient reported that she was not able to breathe. Patient reported that it was the first time when she felt so intense. Patient denied any psychotic symptoms but patient has multiple somatic complaints and somatic delusions cannot be excluded. Patient denied that she wanted to kill herself or kill others. Patient denies using drugs, denied smoking, denied alcohol consumption. Insomnia for past 2 days. Patient reports using [facility], was contacted, meds resumed, but remeron d/c. Patient denies feeling suicidal. Patient signed treatment plan, reported having no questions and left the room. Past psychiatric hospitalization: Patient has history of overdosing on benzodiazepines in order to harm self. Pt's goals for the treatment: "I need to have help with my anxiety". No manic symptoms were elicited. Family history: Denied. pt denied smoking, denied drinking, denied alcohol consumption. Medical history: back pain, see above, h/o cortisone shots, steroids for her back problems, hypothyroidism, hypertension. 05/12/18 14:20 05/12/18 14:20 Lab Results 05/13/18 07:20: TSH 3rd Generation 9.65 H 05/13/18 07:20: Fasting Glucose 106, Triglycerides 153, Cholesterol 169, LDL Cholesterol Direct 96, HDL Cholesterol 50 05/12/18 14:20: Alcohol, Quantitative < 10 05/12/18 14:20: Salicylates < 1 L, Acetaminophen < 10.0 L 05/12/18 14:20: Sodium 139, Potassium 4.5, Chloride 104, Carbon Dioxide 23, Anion Gap 16, BUN 12, Creatinine 0.8, Est GFR ( Amer) > 60, Est GFR (Non- Af Amer) > 60, Random Glucose 82, Calcium 9.9, Total Bilirubin 0.7, AST 32, ALT 20, Alkaline Phosphatase 107, Total Protein 9.3 H, Albumin 5.0 H, Globulin 4.3, Albumin/Globulin Ratio 1.2 05/12/18 14:20: WBC 7.2, RBC 4.15, Hgb 12.7, Hct 37.8, MCV 91.1, MCH 30.6, MCHC 33.6, RDW 13.5, Plt Count 196, MPV 9.7, Neut % (Auto) 45.3 L, Lymph % (Auto) 45.6 H, [place] % (Auto) 7.5 H, Eos % (Auto) 1.5, Baso % (Auto) 0.1, Lymph # (Auto) 3.3, [place] # (Auto) 0.5, Eos # (Auto) 0.1, Baso # (Auto) 0.01, Absolute Neuts (auto) 3.27 05/12/18 14:10: Urine Opiates Screen Negative, Urine Methadone Screen Negative, Ur Barbiturates Screen Negative, Ur Phencyclidine Scrn Negative, Ur Amphetamines Screen Negative, U Benzodiazepines Scrn Negative, U Oth Cocaine Metabols Negative, U Cannabinoids Screen Negative 05/12/18 14:10: Urine Color Yellow, Urine Appearance Clear, Urine pH 6.0, Ur Specific [place] 1.025, Urine Protein Negative, Urine Glucose (UA) Negative, Urine Ketones Negative, Urine Blood Negative, Urine Nitrate Negative, Urine Bilirubin Negative, Urine Urobilinogen 0.2, Ur Leukocyte Esterase Negative Vital Signs Temp Pulse Resp BP Pulse Ox 05/13/18 06:15 98 F 86 18 100/67 05/12/18 22:15 18 05/12/18 21:55 97.7 F 102 H 18 157/87 H 100 05/12/18 20:06 91 H 18 144/90 100 05/12/18 17:55 88 16 144/72 99 05/12/18 16:30 92 H 18 150/90 99 05/12/18 14:16 80 18 154/72 H 99 05/12/18 13:41 97.9 F 95 H 19 189/105 H 100 The patient failed the outpatient lower level of care: Yes Current Medications: Active Medications Generic Name Dose Route Start Last Admin Trade Name Freq PRN Reason Stop Dose Admin Acetaminophen 650 mg 05/12/18 21:30 Tylenol 325mg Tab PO Q4H PRN Fever >100.4 F Al Hydrox/Mg Hydrox/Simethicone 30 ml 05/12/18 21:31 Maalox Plus 30 Ml PO DAILY PRN Indigestion / Heartburn Atorvastatin Calcium 10 mg 05/13/18 17:00 Lipitor PO DIN HOLA Clonazepam 1 mg 05/12/18 22:00 05/12/18 22:08 Klonopin PO 1 mg HS HOLA Administration Protocol Levothyroxine Sodium 50 mcg 05/13/18 06:00 05/13/18 06:01 Synthroid PO 50 mcg 0600 HOLA Administration Lorazepam 2 mg 05/12/18 21:47 Ativan IM Q6H PRN SEVERE AGITATION Protocol Lorazepam 2 mg 05/12/18 21:47 Ativan PO Q6H PRN Anxiety Protocol Losartan Potassium 50 mg 05/13/18 08:00 05/13/18 08:51 Cozaar PO 50 mg DAILY HOLA Administration Magnesium Hydroxide 30 ml 05/12/18 21:35 Milk Of Magnesia PO DAILY PRN Constipation Pantoprazole Sodium 40 mg 05/13/18 06:00 05/13/18 06:01 Protonix Ec Tab PO 40 mg 0600 HOLA Administration Venlafaxine HCl 150 mg 05/13/18 08:00 05/13/18 08:51 Effexor Xr PO 150 mg BID HOLA Administration Ziprasidone 20 mg 05/12/18 21:47 Geodon Cap PO Q6H PRN Agitation Protocol Ziprasidone 20 mg 05/12/18 21:47 Geodon Inj IM Q6H PRN SEVERE AGITATION Protocol Zolpidem Tartrate 10 mg 05/12/18 21:35 Ambien PO HS PRN Insomnia Protocol Present on Admission - Present on Admission Any Indicators Present on Admission: No Review of Systems - Review of Systems Systems not reviewed;Unavailable: Acuity of Condition - Constitutional Constitutional: As Per HPI - EENT Eyes: As Per HPI Ears: As Per HPI Nose/Mouth/Throat: As Per HPI - Breasts Breasts: As Per HPI - Cardiovascular Cardiovascular: As Per HPI - Respiratory Respiratory: As Per HPI - Gastrointestinal Gastrointestinal: As Per HPI - Genitourinary Genitourinary: As Per HPI - Reproductive: Female Reproductive:Female: As Per HPI - Menstruation Menstruation: As Per HPI - Musculoskeletal Musculoskeletal: As Per HPI - Integumentary Integumentary: As Per HPI - Neurological Neurological: As Per HPI - Psychiatric Psychiatric: As Per HPI - Endocrine Endocrine: As Per HPI - Hematologic/Lymphatic Hematologic: As Per HPI Past Patient History - Past Psychiatric History Previous Treatment History: Inpatient Prior Professional Help: See HPI Prior Psychiatric Treatment: See HPI At what hospital: See HPI Duration: See HPI Nature of Treatment: See HPI Explanation of prior treatment: See HPI - PSYCHIATRIC Hx Depression: Yes Hx Substance Use: No - Infectious Disease Hx of Infectious Diseases: None - Tetanus Immunizations Tetanus Immunization: Unknown - Past Medical History & Family History Past Medical History?: Yes - CARDIAC Hx Cardiac Disorders: No Hx Hypertension: Yes - PULMONARY Hx Respiratory Disorders: No Hx Tuberculosis: No - NEUROLOGICAL Hx Neurological Disorder: No HX Cerebrovascular Accident: No Hx Seizures: No - HEENT Hx HEENT Problems: Yes (SEASONAL ALLERGIES) - RENAL Hx Chronic Kidney Disease: No - ENDOCRINE/METABOLIC Hx Endocrine Disorders: Yes Hx Hypothyroidism: Yes - HEMATOLOGICAL/ONCOLOGICAL Hx Cancer: No - INTEGUMENTARY Hx Dermatological Problems: No - MUSCULOSKELETAL/RHEUMATOLOGICAL Hx Musculoskeletal Disorders: Yes Hx Back Pain: Yes (PINCHED NERVE) Hx Herniated Disk: Yes (4) - GASTROINTESTINAL Hx Gastrointestinal Disorders: Yes Hx Gastritis: Yes - GENITOURINARY/GYNECOLOGICAL Hx Sexually Transmitted Disorders: No - SURGICAL HISTORY Hx Section: Yes (X1) Hx Hysterectomy: Yes - ANESTHESIA Hx Anesthesia: Yes Hx Anesthesia Reactions: Yes (nausea) Hx Malignant Hyperthermia: No - Medical/Surgical History Reviewed & confirmed: by ct Meds Allergies/Adverse Reactions: Allergies Allergy/AdvReac Type Severity Reaction Status Date / Time Anesthesia Allergy ITCHING Uncoded 05/12/18 21:58 Mental Status Examination - Personal Presentation Personal Presentation: Looks stated age - Affect Affect: Flat - Motor Activity Motor Activity: Calm - Reliability in Providing Information Reliability in Providing Information: Fair - Speech Speech: Organized - Mood Mood: Anxious - Formal Thought Process Formal Thought Process: Other (somatic delusions cannot be excluded) - Obsessions/Compulsions Obsessions: None Compulsions: None - Cognitive Functions Orientation: Person, Place, Situation Abstract Thinking: [place] Estimate of Intelligence: Average Judgement: Intact, as evidence by: Insight regarding need for hospitalization - Risk Risk: Diminished functioning - Strength & Assets Inventory Strength & Assets Inventory: Family support, Cooperative, Other (No drugs improvement, compliant with treatment plan) - Limitations Limitations: Living alone Psychiatric Physical Exam - Physical Exam Reviewed and confirmed: Emergency Department Physical Exam Results - Vital Signs Recent Vital Signs: Last Vital Signs Temp 98 F 05/13/18 06:15 Pulse 86 05/13/18 06:15 Resp 18 05/13/18 06:15 BP 100/67 05/13/18 06:15 Pulse Ox 100 05/12/18 21:55 - Labs Result Diagrams: 05/12/18 14:20 05/12/18 14:20 Labs: Laboratory Results - last 24 hr 05/12/18 05/12/18 05/12/18 14:10 14:10 14:20 WBC 7.2 RBC 4.15 Hgb 12.7 Hct 37.8 MCV 91.1 MCH 30.6 MCHC 33.6 RDW 13.5 Plt Count 196 MPV 9.7 Neut % (Auto) 45.3 L Lymph % (Auto) 45.6 H [place] % (Auto) 7.5 H Eos % (Auto) 1.5 Baso % (Auto) 0.1 Lymph # (Auto) 3.3 [place] # (Auto) 0.5 Eos # (Auto) 0.1 Baso # (Auto) 0.01 Absolute Neuts (auto) 3.27 Sodium Potassium Chloride Carbon Dioxide Anion Gap BUN Creatinine Est GFR ( Amer) Est GFR (Non-Af Amer) Random Glucose Fasting Glucose Calcium Total Bilirubin AST ALT Alkaline Phosphatase Total Protein Albumin Globulin Albumin/Globulin Ratio Triglycerides Cholesterol LDL Cholesterol Direct HDL Cholesterol TSH 3rd Generation Urine Color Yellow Urine Appearance Clear Urine pH 6.0 Ur Specific [place] 1.025 Urine Protein Negative Urine Glucose (UA) Negative Urine Ketones Negative Urine Blood Negative Urine Nitrate Negative Urine Bilirubin Negative Urine Urobilinogen 0.2 Ur Leukocyte Esterase Negative Salicylates Urine Opiates Screen Negative Urine Methadone Screen Negative Acetaminophen Ur Barbiturates Screen Negative Ur Phencyclidine Scrn Negative Ur Amphetamines Screen Negative U Benzodiazepines Scrn Negative U Oth Cocaine Metabols Negative U Cannabinoids Screen Negative Alcohol, Quantitative 05/12/18 05/12/18 05/12/18 14:20 14:20 14:20 WBC RBC Hgb Hct MCV MCH MCHC RDW Plt Count MPV Neut % (Auto) Lymph % (Auto) [place] % (Auto) Eos % (Auto) Baso % (Auto) Lymph # (Auto) [place] # (Auto) Eos # (Auto) Baso # (Auto) Absolute Neuts (auto) Sodium 139 Potassium 4.5 Chloride 104 Carbon Dioxide 23 Anion Gap 16 BUN 12 Creatinine 0.8 Est GFR ( Amer) > 60 Est GFR (Non-Af Amer) > 60 Random Glucose 82 Fasting Glucose Calcium 9.9 Total Bilirubin 0.7 AST 32 ALT 20 Alkaline Phosphatase 107 Total Protein 9.3 H Albumin 5.0 H Globulin 4.3 Albumin/Globulin Ratio 1.2 Triglycerides Cholesterol LDL Cholesterol Direct HDL Cholesterol TSH 3rd Generation Urine Color Urine Appearance Urine pH Ur Specific [place] Urine Protein Urine Glucose (UA) Urine Ketones Urine Blood Urine Nitrate Urine Bilirubin Urine Urobilinogen Ur Leukocyte Esterase Salicylates < 1 L Urine Opiates Screen Urine Methadone Screen Acetaminophen < 10.0 L Ur Barbiturates Screen Ur Phencyclidine Scrn Ur Amphetamines Screen U Benzodiazepines Scrn U Oth Cocaine Metabols U Cannabinoids Screen Alcohol, Quantitative < 10 05/13/18 05/13/18 07:20 07:20 WBC RBC Hgb Hct MCV MCH MCHC RDW Plt Count MPV Neut % (Auto) Lymph % (Auto) [place] % (Auto) Eos % (Auto) Baso % (Auto) Lymph # (Auto) [place] # (Auto) Eos # (Auto) Baso # (Auto) Absolute Neuts (auto) Sodium Potassium Chloride Carbon Dioxide Anion Gap BUN Creatinine Est GFR ( Amer) Est GFR (Non-Af Amer) Random Glucose Fasting Glucose 106 Calcium Total Bilirubin AST ALT Alkaline Phosphatase Total Protein Albumin Globulin Albumin/Globulin Ratio Triglycerides 153 Cholesterol 169 LDL Cholesterol Direct 96 HDL Cholesterol 50 TSH 3rd Generation 9.65 H Urine Color Urine Appearance Urine pH Ur Specific [place] Urine Protein Urine Glucose (UA) Urine Ketones Urine Blood Urine Nitrate Urine Bilirubin Urine Urobilinogen Ur Leukocyte Esterase Salicylates Urine Opiates Screen Urine Methadone Screen Acetaminophen Ur Barbiturates Screen Ur Phencyclidine Scrn Ur Amphetamines Screen U Benzodiazepines Scrn U Oth Cocaine Metabols U Cannabinoids Screen Alcohol, Quantitative - EKG Data EKG Interpreted by: Myself EKG shows normal: Sinus rhythm DSM Plan - DSM 5 DSM 5 Diagnosis: As per history major depressive disorder As per history generalized anxiety disorder Rule out panic disorder Rule out somatic delusions Rule out chronic pain Rule out fibromyalgia - Recommended/Plan of Treatment Treatment Recommendations and Plan of Treatment: Milieu/structure/supportive therapy SW consultation for discharge plan and social issues Med management: Medications were confirmed by patient pharmacy Remeron discontinued As needed medications Family involvement Follow up on labs Will monitor closely Pt was educated about risk/benefits and alternatives of medications, coping strategies (safety plan, suicide prevention), relapse prevention, importance of follow up with psychiatrist and therapist, stay away from drugs/alcohol/smoking Projected ELOS: 5 days Prognosis: Guarded Discharge Plan and Discharge Criteria: Pt will be not depressed or manic, will be more hopeful, will be not psychotic or anxious, will be tolerating medications well, will not have major side effects, will be able to function, will not pose threat to self or others. - Tobacco Cessation Tobacco Use Status for the last 30 days: Non User Tobacco Use Treatment Practical Counseling Provided: No Tobacco Use Treatment FDA-Approved Cessation Medication Provided: No - Alcohol or Substance Abuse Does the patient have an Alcohol or Substance Abuse Disorder: No Initial Psych Certification - Initial Certification I certify that the inpatient psychiatric facility admission was medically necessary for either: Treatment which could reasonbly be expected to improve pt's condition I estimate of hospitalization is necessary for proper treatment of the patient: 5 Unit of Time: Days My plans for post-hospital care for this patient are: Day treatment program Follow-up with primary psychiatrist Dr. Gonzalez.
[2018-05-14] MEDS: Levothyroxine 50 MCG TAB PO SCH (05:10)
[2018-05-14] MEDS: Pantoprazole 40 mg EC Tab PO SCH (05:10)
[2018-05-14] MEDS: Venlafaxine 75 mg ER Cap PO SCH ×2 (08:42→17:04)
--- NOTE | 2018-05-14 09:40 | PCM.PYCHPN ---
Psychiatric Progress Note - Psychiatric Progress Note Patient seen today, length of contact: 25 min Problems Identified/Issues Discussed: I reviewed assessment and recent notes. Patient was interviewed at bedside. Her grooming is fair and she presents as anxious, rambling and repetitive but not overtly disorganized. Presently she reports her mood as "comfortable" and denies any AVH or SI. . She is not responding to internal stimuli and doesn't appear paranoid. Patient has been in fair control. Denies side effects, discomfort or pain (including GI pain) at this time. Sleep was restless. There were no behavioral issues overnight. I Diagnostic Results: As per history major depressive disorder As per history generalized anxiety disorder Rule out panic disorder Rule out somatic delusions Rule out chronic pain Rule out fibromyalgia Medication Change: No Medical Record Reviewed: Yes Mental Status Examination - Cognitive Function Orientation: Person, Place, Situation - Mood Mood: Anxious - Affect Affect: Flat - Formal Thought Process Formal Thought Process: Other (somatic delusions cannot be excluded) - Homicidal Ideation Homicidal Ideation: No Goal/Treatment Plan - Goal/Treatment Plan Progress Toward Problem(s) and Goals/Treatment Plan: * c/w current tx and plan * Patient encouraged to take Ambien 10 mg po HS prn to help with restless sleep. Patient hasn't received any doses on the unit thus far. * No new weekend lab results thus far * Vitals reviewed and noted below: Selected Entries 05/12/18 05/12/18 05/13/18 20:06 21:55 06:15 Temperature 97.7 F 98 F Pulse Rate 91 H 102 H 86 Respiratory 18 18 18 Rate Blood Pressure 144/90 157/87 H 100/67
[2018-05-14] MEDS: Magnesium Hydroxide Susp 30 ml UD PO PRN (21:29)
[2018-05-15] MEDS: Pantoprazole 40 mg EC Tab PO SCH (06:21)
[2018-05-15] MEDS: Levothyroxine 50 MCG TAB PO SCH (06:21)
[2018-05-15 07:19] VITALS: TEMP 98.2
[2018-05-15] MEDS: Venlafaxine 75 mg ER Cap PO SCH ×2 (08:07→18:04)
--- NOTE | 2018-05-15 08:59 | PCM.PYCHPN ---
Psychiatric Progress Note - Psychiatric Progress Note Patient seen today, length of contact: 25 min Problems Identified/Issues Discussed: I reviewed recent notes and interviewed patient at bedside. Her grooming is fair and she presents a little more focused and organized today. She is still an xious however reports "feeling and sleeping better". Patient is not responding to internal stimuli and denies any perceptual disturbance. She doesn't appear paranoid. Patient has been in fair control. Denies side effects, discomfort or pain at this time. Staff note that patient is visible and interactive on the unit. Anxiety and organization seem to be improving though she still has bouts of conf usion. There were no behavioral issues over the weekend. Diagnostic Results: As per history major depressive disorder As per history generalized anxiety disorder Rule out panic disorder Rule out somatic delusions Rule out chronic pain Rule out fibromyalgia Medication Change: No Medical Record Reviewed: Yes Mental Status Examination - Cognitive Function Orientation: Person, Place, Situation Attention: WNL Concentration: Poor - Mood Mood: Anxious - Affect Affect: Flat, Other (anxious) - Speech Speech: Appropriate - Formal Thought Process Formal Thought Process: No Impairment, Other (somatic delusions cannot be excluded) - Homicidal Ideation Homicidal Ideation: No Goal/Treatment Plan - Goal/Treatment Plan Progress Toward Problem(s) and Goals/Treatment Plan: * c/w current tx and plan * On 05/14/18 I encouraged patient to request Ambien 10 mg prn to help with restless sleep. Patient hasn't received any doses on the unit thus far. * No new weekend lab results thus far * Vitals reviewed and noted below: Selected Entries 05/13/18 05/14/18 06:15 16:51 Temperature 98 F Pulse Rate 86 118 H Respiratory 18 Rate Blood Pressure 100/67 143/91 H
[2018-05-15] MEDS: Magnesium Hydroxide Susp 30 ml UD PO PRN (09:45)
[2018-05-16] MEDS: Pantoprazole 40 mg EC Tab PO SCH (05:37)
[2018-05-16] MEDS: Levothyroxine 50 MCG TAB PO SCH (05:37)
[2018-05-16 07:03] VITALS: BP 112/76; PULSE 87; RESP 19
[2018-05-16] MEDS: Venlafaxine 75 mg ER Cap PO SCH (09:16)
--- NOTE | 2018-05-16 16:02 | PCM.PYCHDC ---
Mental Status Examination - Mental Status Examination Orientation: Person, Place, Situation, Time Memory: Intact Mood: Neutral Affect: Broad (And mood congruent) Speech: Appropriate Attention: WNL Concentration: WNL Association: WNL Fund of Knowledge: WNL Formal Thought Process: No Impairment Description of patient's judgement and insight: Pt has improved insight into mental and medical illness, pt was compliant with medications and unit rules and regulations, pt was going to groups, was calm, cooperative, socially appropriate, no behavioral incidents, no agitation, no aggression. Psychotic Thoughts and Behaviors: Pt denied v/a/t hallucinations, denied paranoid ideations, pt does not appear to be psychotic, and thought process is goal directed. Suicidal Ideation: No Current Homicidal Ideation?: No Plan: pt adamantly denied thoughts of harming self or others denied intent or plan. Discharge Summary - Discharge Note Reason for Hospitalization: Patient was admitted to the inpatient unit for evaluation and stabilization of mood symptoms, possible somatic delusions, uncontrolled anxiety, inability to function. Psychiatric History (includes Medical, Family, Personal Hx): See HPI Laboratory Data: 05/12/18 14:20 05/12/18 14:20 Lab Results 05/13/18 07:20: RPR Nonreactive 05/13/18 07:20: TSH 3rd Generation 9.65 H 05/13/18 07:20: Fasting Glucose 106, Triglycerides 153, Cholesterol 169, LDL Cholesterol Direct 96, HDL Cholesterol 50 05/12/18 14:20: Alcohol, Quantitative < 10 05/12/18 14:20: Salicylates < 1 L, Acetaminophen < 10.0 L 05/12/18 14:20: Sodium 139, Potassium 4.5, Chloride 104, Carbon Dioxide 23, Anion Gap 16, BUN 12, Creatinine 0.8, Est GFR ( Amer) > 60, Est GFR (Non- Af Amer) > 60, Random Glucose 82, Calcium 9.9, Total Bilirubin 0.7, AST 32, ALT 20, Alkaline Phosphatase 107, Total Protein 9.3 H, Albumin 5.0 H, Globulin 4.3, Albumin/Globulin Ratio 1.2 05/12/18 14:20: WBC 7.2, RBC 4.15, Hgb 12.7, Hct 37.8, MCV 91.1, MCH 30.6, MCHC 33.6, RDW 13.5, Plt Count 196, MPV 9.7, Neut % (Auto) 45.3 L, Lymph % (Auto) 45.6 H, Whitman % (Auto) 7.5 H, Eos % (Auto) 1.5, Baso % (Auto) 0.1, Lymph # (Auto) 3.3, Whitman # (Auto) 0.5, Eos # (Auto) 0.1, Baso # (Auto) 0.01, Absolute Neuts (auto) 3.27 05/12/18 14:10: Urine Opiates Screen Negative, Urine Methadone Screen Negative, Ur Barbiturates Screen Negative, Ur Phencyclidine Scrn Negative, Ur Amphetamines Screen Negative, U Benzodiazepines Scrn Negative, U Oth Cocaine Metabols Negative, U Cannabinoids Screen Negative 05/12/18 14:10: Urine Color Yellow, Urine Appearance Clear, Urine pH 6.0, Ur Specific [place] 1.025, Urine Protein Negative, Urine Glucose (UA) Negative, Urine Ketones Negative, Urine Blood Negative, Urine Nitrate Negative, Urine Bilirubin Negative, Urine Urobilinogen 0.2, Ur Leukocyte Esterase Negative Vital Signs Temp Pulse Resp BP Pulse Ox 05/16/18 07:00 98.2 F 87 19 112/76 05/15/18 16:00 85 105/69 05/15/18 07:00 98.2 F 85 18 102/68 05/14/18 16:51 118 H 143/91 H 05/13/18 06:15 98 F 86 18 100/67 05/12/18 22:15 18 05/12/18 21:55 97.7 F 102 H 18 157/87 H 100 05/12/18 20:06 91 H 18 144/90 100 05/12/18 17:55 88 16 144/72 99 05/12/18 16:30 92 H 18 150/90 99 05/12/18 14:16 80 18 154/72 H 99 05/12/18 13:41 97.9 F 95 H 19 189/105 H 100 Consultations:: List each consultation separately and include: 1. Reason for request. 2. Findings. 3. Follow-up Consultations: Patient was seen by medical team in the emergency room, was cleared. Patient expressed her interest to follow-up at [facility] here in [place], appointment was provided. Summary of Hospital Course include:: 1. Description of specific treatment plan utilized for patients during their course of treatmen. 2. Summarize the time-course for resolution of acute symptoms and/or regressed behaviors. 3. Describe issues identified and worked on during hospitalization. 4. Describe medication utilized. 5. Describe medical problems identified and treated. 6. Reassessment of suicide risk Summary of Hospital Course: shortly pt is 57yr old female with a hx of anxiety and depression, previous psychiatric admissions, most recent was in this facility in November 2017, patient denied history of suicidal attempts, patient has private psychiatrist whom she sees regularly, patient claimed being compliant with her medications and follow-up appointments, was referred by her outpatient psychiatrist Dr. Gonzalez for evaluation and stabilization and possible medication adjustment for her depressive symptoms as well as uncontrolled anxiety which affects her daily activities and functionality. 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 Please see admission note for more detailed information. Patient patient was continued which patient's pharmacy. The only change this singer songwriter implemented was discontinuation of Remeron time for insomnia and depression, because patient complained of gaining weight patient slept well on Klonopin. Over the course of this hospitalization patient was compliant with her medications, unit rules and regulations, over the weekend patient presented well, no panic attacks, patient was in good behavioral control. Overall pt improved significantly, pt's affect became brighter, pt was less depressed, has realistic future oriented plans "I want to go back to [place], I am excited about my first grandchild", pt also does not appear to be psychotic, or anxious, pt was socially appropriate, no behavioral issues, patient did not experience any panic attacks, pt deemed to be ready for discharge. At the time of the discharge patient pose no imminent danger to self or others, will be following up with her private psychiatrist Dr. Gonzalez, information about follow up appointment, time and address provided to the pt, (see SW note for more detailed information). It is a patient responsibility to follow up with outpatient clinic, PMD as well as specialists In case patient will need to obtain results of studies pending at discharge, patient was provided with contact information of Psychiatric Inpatient unit [phone] as well as Medical Record Department [phone], as well as [facility] team [phone]. Patient denied using drugs, denied smoking, denied alcohol consumption. pt was provided with prescriptions see medication reconciliation form Pt was educated about safety plan in case of worsening of symptoms or in case of suicidal or homicidal ideation call 911 or go to the nearest ER, also was educated to take meds as prescribed and stay away from drugs, pt verbalized understanding. 05/12/18 14:20 05/12/18 14:20 Lab Results 05/13/18 07:20: TSH 3rd Generation 9.65 H 05/13/18 07:20: Fasting Glucose 106, Triglycerides 153, Cholesterol 169, LDL Cholesterol Direct 96, HDL Cholesterol 50 05/12/18 14:20: Alcohol, Quantitative < 10 05/12/18 14:20: Salicylates < 1 L, Acetaminophen < 10.0 L 05/12/18 14:20: Sodium 139, Potassium 4.5, Chloride 104, Carbon Dioxide 23, Anion Gap 16, BUN 12, Creatinine 0.8, Est GFR ( Amer) > 60, Est GFR (Non- Af Amer) > 60, Random Glucose 82, Calcium 9.9, Total Bilirubin 0.7, AST 32, ALT 20, Alkaline Phosphatase 107, Total Protein 9.3 H, Albumin 5.0 H, Globulin 4.3, Albumin/Globulin Ratio 1.2 05/12/18 14:20: WBC 7.2, RBC 4.15, Hgb 12.7, Hct 37.8, MCV 91.1, MCH 30.6, MCHC 33.6, RDW 13.5, Plt Count 196, MPV 9.7, Neut % (Auto) 45.3 L, Lymph % (Auto) 45.6 H, Whitman % (Auto) 7.5 H, Eos % (Auto) 1.5, Baso % (Auto) 0.1, Lymph # (Auto) 3.3, Whitman # (Auto) 0.5, Eos # (Auto) 0.1, Baso # (Auto) 0.01, Absolute Neuts (auto) 3.27 05/12/18 14:10: Urine Opiates Screen Negative, Urine Methadone Screen Negative, Ur Barbiturates Screen Negative, Ur Phencyclidine Scrn Negative, Ur Amphetamines Screen Negative, U Benzodiazepines Scrn Negative, U Oth Cocaine Metabols Negative, U Cannabinoids Screen Negative 05/12/18 14:10: Urine Color Yellow, Urine Appearance Clear, Urine pH 6.0, Ur Specific [place] 1.025, Urine Protein Negative, Urine Glucose (UA) Negative, Urine Ketones Negative, Urine Blood Negative, Urine Nitrate Negative, Urine Bilirubin Negative, Urine Urobilinogen 0.2, Ur Leukocyte Esterase Negative Vital Signs Temp Pulse Resp BP Pulse Ox 05/13/18 06:15 98 F 86 18 100/67 05/12/18 22:15 18 05/12/18 21:55 97.7 F 102 H 18 157/87 H 100 05/12/18 20:06 91 H 18 144/90 100 05/12/18 17:55 88 16 144/72 99 05/12/18 16:30 92 H 18 150/90 99 05/12/18 14:16 80 18 154/72 H 99 05/12/18 13:41 97.9 F 95 H 19 189/105 H 100 - Diagnosis (1) Panic attack Status: Acute Priority: High (2) MDD (major depressive disorder) Status: Chronic Priority: Medium - Final Diagnosis (DSM 5) Condition upon Discharge: GOOD Disposition: HOME/ ROUTINE Follow-up Treatment Plan: At the time of the discharge patient pose no imminent danger to self or others, will be following up with her private psychiatrist Dr. Gonzalez, information about follow up appointment, time and address provided to the pt, (see SW note for more detailed information). It is a patient responsibility to follow up with outpatient clinic, PMD as well as specialists In case patient will need to obtain results of studies pending at discharge, patient was provided with contact information of Psychiatric Inpatient unit [phone] as well as Medical Record Department [phone], as well as [facility] team [phone]. Patient denied using drugs, denied smoking, denied alcohol consumption. pt was provided with prescriptions see medication reconciliation form Pt was educated about safety plan in case of worsening of symptoms or in case of suicidal or homicidal ideation call 911 or go to the nearest ER, also was educated to take meds as prescribed and stay away from drugs, pt verbalized understanding. - Smoking Cessation Smoking Cessation Medication prescribed: No Reason for not providing: Denies smoking - Antipsychotic Medications Pt discharged on 2 or more routine antipsychotic medications: No
== END 2018-05-16 15:29 | disposition home or self-care (01) | DRG 426 ==
LOC: ED 13:18 → ERH 16:42 → PSYC 20:19
PROVIDERS: ADMIT Psychiatry & Neurology Psychiatry; ATTEND Psychiatry & Neurology Psychiatry
DX: F32.9 Major depressive disorder, single episode, unspecified (principal); F41.0 Panic disorder [episodic paroxysmal anxiety]; F41.1 Generalized anxiety disorder; E03.9 Hypothyroidism, unspecified; I10 Essential (primary) hypertension; G47.00 Insomnia, unspecified; Z79.51 Long term (current) use of inhaled steroids

== ENCOUNTER 2018-08-03 13:32 | Emergency (ER) | payer MEDICAID ==
[2018-08-03 13:34] VITALS: BMI 27.2
--- NOTE | 2018-08-03 14:23 | ED PDOC ---
Arrival/HPI - General Chief Complaint: Upper Extremity Problem/Injury Time Seen by Provider: 08/03/18 13:39 Historian: Patient - History of Present Illness Narrative History of Present Illness (Text): 08/03/18 14:29 57 year old female, with a past medical history of gastritis, sciatica, herniated discs, and chronic back pain (s/p accidents in 2012 and 2015), who presents to the emergency department with chief complaint of neck pain radiating to bilateral shoulders since yesterday. Patient endorses pain in left leg. She reports she took antiinflammatory medication for the pain, with slight relief. Time/Duration: 24 hours Symptom Onset: Gradual Symptom Course: Unchanged Activities at Onset: Light Context: Home Past Medical History - Provider Review Nursing Documentation Reviewed: Yes - Infectious Disease Hx of Infectious Diseases: None - Tetanus Immunization Tetanus Immunization: Unknown - Cardiac Hx Cardiac Disorders: No Hx Hypertension: Yes - Pulmonary Hx Respiratory Disorders: No Hx Tuberculosis: No - Neurological Hx Neurological Disorder: No HX Cerebrovascular Accident: No Hx Seizures: No - HEENT Hx HEENT Disorder: Yes (SEASONAL ALLERGIES) - Renal Hx Renal Disorder: No - Endocrine/Metabolic Hx Endocrine Disorders: Yes Hx Hypothyroidism: Yes - Hematological/Oncological Hx Cancer: No - Integumentary Hx Dermatological Disorder: No - Musculoskeletal/Rheumatological Hx Musculoskeletal Disorders: Yes Hx Back Pain: Yes (PINCHED NERVE) Hx Herniated Disk: Yes (4) - Gastrointestinal Hx Gastrointestinal Disorders: Yes Hx Gastritis: Yes - Genitourinary/Gynecological Hx Sexually Transmitted Diseases: No - Psychiatric Hx Depression: Yes Hx Substance Use: No - Surgical History Hx Section: Yes (X1) Hx Hysterectomy: Yes - Anesthesia Hx Anesthesia: Yes Hx Anesthesia Reactions: Yes (nausea) Hx Malignant Hyperthermia: No - Suicidal Assessment Feels Threatened In Home Enviroment: No Family/Social History - Physician Review Nursing Documentation Reviewed: Yes Family/Social History: Unknown Family HX Smoking Status: Never Smoked Hx Alcohol Use: No Hx Substance Use: No Hx Substance Use Treatment: No Allergies/Home Meds Allergies/Adverse Reactions: Allergies Anesthesia Allergy (Uncoded 05/12/18 21:58) ITCHING Home Medications: Home Meds Medication Instructions Recorded Confirmed Atorvastatin [Lipitor] 20 mg PO DIN 04/20/18 05/12/18 Ergocalciferol (Vitamin D2) 1 tab PO QWK 04/20/18 05/12/18 [Vitamin D2] Fluticasone Propionate [Flovent 1 spray INH DAILY 04/20/18 05/12/18 Diskus] Levocetirizine Dihydrochloride 1 tab PO DAILY 04/20/18 05/12/18 Losartan [Cozaar] 100 mg PO DAILY 04/20/18 05/12/18 Mirtazapine 1 tab PO HS 04/20/18 05/12/18 Venlafaxine [Effexor XR] 300 mg PO DAILY 04/20/18 05/12/18 Review of Systems - Physician Review All systems were reviewed & negative as marked: Yes - Review of Systems Constitutional: absent: Fevers Respiratory: absent: SOB Cardiovascular: absent: Chest Pain Musculoskeletal: Neck Pain, Other (bilateral shoulder pain, left leg pain.). absent: Back Pain Physical Exam - Physical Exam Narrative Physical Exam (Text): 08/03/18 14:23 Gen: VS reviewed, alert, well developed, well nourished, nontoxic, mild distress Eye: EOMI, PERRL Neck: no JVD, supple, no adenopathy. Limited lateral rotation of neck, secondary to pain. Limited flexion extension of neck secondary to pain. CV: regular rate, regular rhythm, no rubs,no murmur, S1, S2 Pulm: no distress, clear to auscultation, no wheeze, no rhonchi, breath sounds equal, no rales Abd: soft, nontender, no guarding, no rebound, no rigidity Ext: no edema Skin: good color, no rash, no cyanosis Psych: responds appropriately to questions, normal affect Neuro: oriented x3, CN2-12 intact grossly, motor intact, sensation intact Vital Signs Temp Pulse Resp BP Pulse Ox 08/03/18 13:45 98.4 F 95 H 18 135/75 99 Temperature: Afebrile Blood Pressure: Normal Pulse: Tachycardic Respiratory Rate: Normal Medical Decision Making ED Course and Treatment: 08/03/18 14:20 Impression: 57 year old female presents to the emergency department with chief complaint shoulder pain, bilaterally. Plan: -- Decadron -- Flexeril -- Lidoderm -- Toradol -- Tylenol -- Reassess and disposition Prior Visits: Notes and results from previous visits were reviewed. Progress Notes: 08/03/18 17:01 patient reports significant improvement in neck pain, mostly resolved. there are no neuro deficits no weakness or sensory deficits. patient stable for dc and recommended for follow up with pcp for eventually advanced imaging such as MRI. - EKG Interpretation EKG Interpretation (Text): 08/03/18 15:12 ekg my read: nsr at 89 bpm, nml qrs, nml axis, no acute sttw abn Interpreted by ED Physician: Yes - Scribe Statement The provider has reviewed the documentation as recorded [facility] the [facility] Sc[facility] Attestation: All medical record entries made by the Julienibe were at my direction and personally dictated by me. I have reviewed the chart and agree that the record accurately reflects my personal performance of the history, physical exam, medic al decision making, and the department course for this patient. I have also personally directed, reviewed, and agree with the discharge instructions and disposition. Disposition/Present on Arrival - Present on Arrival Any Indicators Present on Arrival: No History of DVT/PE: No History of Uncontrolled Diabetes: No Urinary Catheter: No History of Decub. Ulcer: No History Surgical Site Infection Following: None - Disposition Have Diagnosis and Disposition been Completed?: Yes Diagnosis: Radiculopathy of cervical region Disposition: HOME/ ROUTINE Disposition Time: 17:03 Patient Plan: Discharge Condition: IMPROVED Discharge Instructions (ExitCare): Radiculopathy (DC) Additional Instructions: follow up with your primary care doctor as soon as possible. you may need advanced imaging of your neck such as MRI. Prescriptions: Cyclobenzaprine [Flexeril] 5 mg PO TID #15 tab Ibuprofen [Motrin Tab] 600 mg PO QID #30 tab Lidocaine 5% [Lidoderm] 1 ea TD Q12H #14 patch Prednisone [Deltasone] 40 mg PO DAILY 5 Days #10 tablet Forms: [employer] (Belarusian)
[2018-08-03] MEDS ORDERED: Lidocaine 5% Patch TD STA (14:30)
[2018-08-03 16:14] VITALS: BP 131/65
[2018-08-03 17:30] VITALS: PULSE 93; RESP 17; TEMP 98; O2SAT 97
--- NOTE | 2018-08-03 19:31 | CARD ---
APPROVED REPORT Date of service: 08/03/2018 EKG Measurement Heart [id number] <Conclusion> Normal sinus rhythm Normal ECG
== END 2018-08-03 17:42 | disposition home or self-care (01) ==
LOC: ED 13:32
DX: M54.12 Radiculopathy, cervical region (principal); I10 Essential (primary) hypertension; E03.9 Hypothyroidism, unspecified
CPT/HCPCS: 93005; 96372; 99283; J1100; J1885